=== PATIENT | female | born 1955 | race Caucasian/White ===

== ENCOUNTER 2016-11-16 12:18 | Emergency (ER) | payer BC ==
--- NOTE | 2016-11-17 15:40 | ER ---
ADMIT: 11/16/2016 RM/LOC: ER [facility] MR#: [id number] [address] [id number] SUMAN SCHULTE [address] [place] [id number] Emergency Room Report SEX: F AGE: 61 : 1955 DATE: 11/16/2016 For chief complaint, history of present illness, past medical history, medications, allergies, review of systems, including physical exam, please see my T-sheet. INTERIM HISTORY: The patient is a 61-year-old white female, who presents to the emergency room. She was here in the hospital, visiting her dad upstairs when she tripped over the call light cord, and hit her head on the ground. She denies any loss of consciousness. PHYSICAL EXAMINATION: Vital signs are stable. She has a little bit of discomfort right over the laceration. No evidence of intracranial laxity. Extraocular movements are intact. There does appear to be simple laceration to the right upper brow. The patient was wearing glasses when she fell, likely the reason for the laceration. Please see my T-sheet for laceration repair. IMPRESSION: Laceration, 3 cm to the right forehead/brow. Standard wound care. Follow up with her primary for suture removal. The patient is in stable condition at discharge. TAMMIE Beth / Yasir Hernandez MD / billyl JOB #: [id number] CC: Yasir Hernandez MD, Attending Physician Pema Bolden APRN, Family Physician
== END 2016-11-16 13:40 | disposition home or self-care (01) ==
LOC: ER 12:18
PROC: 0HQ1XZZ Repair Face Skin, External Approach (ICD-10-PCS; principal; 2016-11-16)
DX: S01.111A Laceration without foreign body of right eyelid and periocular area, initial encounter (principal); W01.0XXA Fall on same level from slipping, tripping and stumbling without subsequent striking against object, initial encounter

== ENCOUNTER → 2016-12-30 | Outpatient (CLI) | payer BC | END | disposition home or self-care (01) | DX: Z12.31 Encounter for screening mammogram for malignant neoplasm of breast (principal); R92.1 Mammographic calcification found on diagnostic imaging of breast ==